=== PATIENT | female | born 1985 | race Caucasian/White ===

== ENCOUNTER 2018-09-19 13:17 | Emergency (ER) | END 2018-09-19 15:59 | disposition home or self-care (01) ==

== ENCOUNTER 2019-01-16 12:46 | Outpatient (CLI) | payer OTHER ==
[~2019-01-16] VITALS: Ht 162.6 cm; Wt 68.2 kg
[~2019-01-16 12:46] MED LIST: ACET500C5 PO; CEPH-443 PO; PREN-17 PO
[2019-01-16 13:04] VITALS: Ht 162.6 cm; Wt 68.2 kg
[2019-01-16] MEDS ORDERED: PREN-93 PO (13:14)
--- NOTE | 2019-01-16 14:38 | PN ---
Triage Information Date/Time 01/16/2019 Reason for visit: Uterine contractions Weeks of Gestation 24 weeks /Para Diabetes: none Hypertention: none Additional information 33 years old with IUP at [address] Efrain Sánchez presented to Triage with complaint of sore throat and headache. Any leaking of fluid vaginal bleeding or contractions or decreased movement. Denies any fever or chills. Objective Heart Rate: 130's Contractions: None Exam General appearance: Alert and oriented x4 does not appear to be in any acute distress Abdomen: Soft, gravid, fundal height consider gestational age NST: Appropriate for gestational age HEENT: Erythema of the pharynx noted with no exudate Lungs: Clear to auscultation bilaterally CV: RRR Disposition: Discharge Assessment/Plan IUP at 24 weeks Sore throat, body ache, headache and cough Symptoms consistent with URI No obstetrical problems at this time Patient will be referred to emergency room for further evaluation for sore throat and treatment Strict labor precautions kick count follow-up within 2 days after discharge from the hospital with primary OB office discussed with the patient After sending the patient to ED, noted that the urine shows evidence of UTI. Called ED and Discussed with ED attending who will assess the patient after Discharged from Triage to ED, Talked to Sena Villanueva, regarding UTI who agreed to dispense treatment for UTI if DCd from ED. Patient verbalized understanding. All questions answered. AZIZA PAREDES MD Jan 16, 2019 14:38
[2019-01-16] MEDS ORDERED: ACET325T33 PO (15:00)
[2019-01-16] MEDS ORDERED: NITR-58 PO (15:00)
--- NOTE | 2019-01-16 18:48 | TRIAGE ---
OB Triage Datetime Report Generated by CPN: 01/16/2019 18:48 Datetime: 01/16/2019 12:53 Time of Arrival: 01/16/2019 12:53 EGA: 24.0 Arrived By: Ambulatory Arrived From: Home Chief Complaint: PT CAME IN FROM HOME COMPLAINIG OF FLU LIKE S/S Movement: Present Contractions: Denies/Absent Rupture of Membranes: Denies Vaginal Discharge: Denies Recent Sexual Intercouse: Denies Abdominal Trauma: Not Applicable Additional Patient Complaints: NONE Time Provider Notified: 01/16/2019 12:54 Provider Notified: CHERRI Initial Plan: MATT
== END 2019-01-16 13:45 | disposition home or self-care (01) ==
LOC: L-D 12:46 → OBT 12:46
PROVIDERS: ATTEND Obstetrics & Gynecology
DX: O62.9 Abnormality of forces of labor, unspecified (principal); O99.512 Diseases of the respiratory system complicating pregnancy, second trimester; J06.9 Acute upper respiratory infection, unspecified; J02.9 Acute pharyngitis, unspecified; O09.522 Supervision of elderly multigravida, second trimester; Z3A.24 24 weeks gestation of pregnancy
CPT/HCPCS: 81001; Z7500; G0463

== ENCOUNTER 2019-01-16 14:00 | Emergency (ER) | payer OTHER ==
[~2019-01-16] VITALS: Ht 160 cm; Wt 78.5 kg
[~2019-01-16 14:00] MED LIST changes: +PREN-93 PO
[2019-01-16 14:03] VITALS: BP 118/75; PULSE 96; RESP 17; Ht 160 cm; Wt 78.5 kg
[2019-01-16] MEDS ORDERED: ACET325T33 PO (15:00)
[2019-01-16] MEDS ORDERED: NITR-58 PO (15:00)
--- NOTE | 2019-01-16 18:58 | ERD ---
ER Documentation Chief Complaint Chief Complaint HEADACHE, SORE THROAT , BODY ACHES, COUGH HPI Patient is a 33-year-old female with diabetes who presents for sore throat. The patient was cleared by OB as she is 24 weeks . She has had sore throat, headache, and chills over the past 8 days. She has had no treatment as of yet. I spoke with Dr. Gallardo from OB who said that a urine sample showed cystitis and she requested Macrobid for 10 days. ROS All systems reviewed and are negative except as per history of present illness. Medications Home Meds Active Scripts Acetaminophen* (Tylenol*) 325 Mg Tablet, 2 TAB PO Q8 PRN for PAIN AND OR ELEVATED TEMP, #20 TAB Prov:HAIR JOLLEY MD 01/16/19 Nitrofurantoin Monohyd Macrocr* (Macrobid*) 100 Mg Capsr, 100 MG PO BID for 10 Days, CAP Prov:HAIR JOLLEY MD 01/16/19 Reported Medications Vit No.124/Iron/FA ( Vitamin Tablet) 1 Each Tablet, 1 EACH PO, TAB 01/16/19 Allergies Allergies: Coded Allergies: No Known Allergy (Unverified , 09/19/18) PMhx/Soc Medical and Surgical Hx: pt denies Medical Hx Hx Alcohol Use: No Hx Substance Use: No Hx Tobacco Use: No FmHx Family History: diabetes Physical Exam Vitals Vital Signs Date Temp Pulse Resp B/P (MAP) Pulse Ox O2 O2 Flow FiO2 Time Delivery Rate 01/16/19 97.7 96 17 118/75 100 14:03 (89) Physical Exam Const: No acute distress Head: Atraumatic Eyes: Normal Conjunctiva ENT: Normal External Ears, Nose and Mouth. Neck: Full range of motion. No meningismus. Resp: Clear to auscultation bilaterally Cardio: Regular rate and rhythm, no murmurs Abd: Soft, 24-week abdomen Skin: No petechiae or rashes Back: No midline or flank tenderness Ext: No cyanosis, or edema Neur: Awake and alert Psych: Normal Mood and Affect Procedures/MDM Patient is a 33-year-old female who presents what appears to be an acute upper respiratory infection. I see no signs of bacterial infection in the throat. I doubt epiglottitis, retropharyngeal abscess, or peritonsillar abscess. The patient has cystitis and will be given 10 days of Macrobid.` Departure Diagnosis: Primary Impression: Cystitis Additional Impression: Upper respiratory infection URI type: unspecified URI Qualified Codes: J06.9 - Acute upper respiratory infection, unspecified Condition: Fair Patient Instructions: Preventing Common Respiratory Infections, Cystitis Referrals: [facility] Additional Instructions: Specialist:Usted tiene surinder condicin mdica que requiere que abdiel a un especialista dentro de los prximos 1-2 bright.POR FAVOR,CON LOPEZ SEGUIMIENTO DE PRIMARIA PHSICIAN refferal. SI USTED NO TIENE UN MDICO GENERAL Y / O USTED NO PUEDE PAGAR edgar a un mdico,los siguientes ordonez RECURSOS sido suministrado a usted. ES LOPEZ RESPONSABILIDAD PARA SER VISTOS POR EL ESPECIALISTA: HAIR JOLLEY MD Jan 16, 2019 18:58
== END 2019-01-16 16:49 | disposition home or self-care (01) ==
LOC: E/R 14:00
DX: J06.9 Acute upper respiratory infection, unspecified (principal); N30.90 Cystitis, unspecified without hematuria; E11.9 Type 2 diabetes mellitus without complications
CPT/HCPCS: 99283

== ENCOUNTER 2019-03-06 17:41 | Outpatient (CLI) | payer OTHER ==
[~2019-03-06] VITALS: Ht 165.1 cm; Wt 80.5 kg
[~2019-03-06 17:41] MED LIST changes: +ACET325T33 PO; -ACET500C5 PO; -CEPH-443 PO; +NITR-58 PO; -PREN-17 PO
[2019-03-06 18:26] VITALS: Ht 165.1 cm; Wt 80.5 kg
[2019-03-06 18:27] VITALS: BP 104/69; PULSE 93; RESP 19
--- NOTE | 2019-03-06 20:50 | TRIAGE ---
OB Triage Datetime Report Generated by CPN: 03/06/2019 20:49 Datetime: 03/06/2019 20:27 Labor Evaluation Frequency: 0 Monitor Mode: External Pattern: Normal: <= 5 Contractions in 10 Minutes Resting Tone [place]: Relaxed Heart Rate FHR Baseline Rate: 135 Monitor Mode: External US FHR Baseline Changes: No Baseline Change Variability: Moderate 6-25 bpm Accelerations: 15X15 Decelerations: None Category: Category I Datetime: 03/06/2019 18:47 Labor Evaluation Frequency: 0 Monitor Mode: External Pattern: Normal: <= 5 Contractions in 10 Minutes Resting Tone [place]: Relaxed Heart Rate FHR Baseline Rate: 150 Monitor Mode: External US Variability: Moderate 6-25 bpm Accelerations: 15X15 Decelerations: None Category: Category I Datetime: 03/06/2019 18:20 Assessment Type: Triage Maternal Assessment Level of Consciousness: Fully Conscious DTR's/Clonus: DTRs 2+; No Clonus Headache: Denies Blurred Vision: No Respiratory Effort: Unlabored; Regular Rhythm; Equal Expansion Breath Sounds, Left: Clear and Equal Breath Sounds, Right: Clear and Equal Nausea/Vomiting: Denies RUQ Epigastric Pain: Denies Lower Extremities Edema: None Degree: None Upper Extremities Edema: None Degree: None Facial Edema: None Fall Risk Assessment History of Falling: (0) No Secondary Diagnosis: (0) No Ambulatory Aid: (0) Bedrest/Nurse Assist IV Therapy: (0) No Gait: (0) Normal/Bedrest/Immobile Mental Status: (0) Oriented to Own Ability Fall Score: 0 Fall Risk Score Definition: No Risk: No action required Datetime: 03/06/2019 18:18 Time of Arrival: 03/06/2019 17:30 EGA: 31.4 Arrived By: Ambulatory Arrived From: Home Chief Complaint: UC'S SINCE LAST NIGHT Movement: Present Contractions: Irregular Rupture of Membranes: Denies Vaginal Bleeding: None Vaginal Discharge: Denies Recent Sexual Intercouse: Denies Abdominal Trauma: Not Applicable Patient Complaints: Other Time Provider Notified: 03/06/2019 18:29 Provider Notified: DR HARLEY Initial Plan: NST CL CBC UA BPP Datetime: 01/16/2019 12:53 EGA: 24.4
--- NOTE | 2019-03-22 12:56 | PN ---
Triage Information Date/Time Reason for visit: Abd/pelvic pain Weeks of Gestation 31 weeks /Para G P Diabetes: gestational Hypertention: none Objective Heart Rate: 120's Heart Rate Comments Reactive Results/Medications Imaging Results Cervical length normal Disposition: Discharge Assessment/Plan no sign of labor SJUIT HARLEY MD Mar 22, 2019 12:56
== END 2019-03-06 20:26 | disposition home or self-care (01) ==
LOC: L-D 17:41 → OBT 17:41
PROVIDERS: ATTEND Obstetrics & Gynecology
DX: O24.419 Gestational diabetes mellitus in pregnancy, unspecified control (principal); O26.893 Other specified pregnancy related conditions, third trimester; R10.2 Pelvic and perineal pain; O09.513 Supervision of elderly primigravida, third trimester; Z3A.31 31 weeks gestation of pregnancy
CPT/HCPCS: 76817; 76818; 81001; 85025; Z7500; G0463

== ENCOUNTER 2019-04-22 16:49 | Outpatient (CLI) | payer OTHER ==
[~2019-04-22] VITALS: Ht 160 cm; Wt 85.4 kg
[~2019-04-22 16:49] MED LIST changes: -ACET325T33 PO; +NPH,100I5 SQ
[2019-04-22 17:53] VITALS: BP 108/72; Ht 160 cm; Wt 85.4 kg
[2019-04-22] MEDS ORDERED: LACTATED RINGER'S 1,000 ML IV ONE (18:30)
--- NOTE | 2019-04-29 22:50 | PN ---
Triage Information Date/Time April 22, 2019 Reason for visit: DFM Weeks of Gestation 38 weeks /Para Diabetes: pre-gestational Diabetes management: insulin controlled Hypertention: none Objective Heart Rate: 120's Heart Rate Comments Reactive Results/Medications Imaging Results BP 05/08 Disposition: Discharge Assessment/Plan Follow up in NST clinic 04/24/2019. SUJIT HARLEY MD Apr 29, 2019 22:50
== END 2019-04-22 20:39 | disposition home or self-care (01) ==
LOC: OBT 16:49 → L-D 16:51 → OBT 20:39
PROVIDERS: ATTEND Obstetrics & Gynecology
DX: O36.8130 Decreased fetal movements, third trimester, not applicable or unspecified (principal); O24.414 Gestational diabetes mellitus in pregnancy, insulin controlled; Z3A.38 38 weeks gestation of pregnancy
CPT/HCPCS: 76818; 81001; 96360; 96361; J7120; Z7500; G0463

== ENCOUNTER 2019-04-26 10:00 | Inpatient (IN) | payer OTHER ==
[~2019-04-26] VITALS: Ht 160 cm; Wt 83.8 kg
[2019-04-27] MEDS ORDERED: LACTATED RINGER'S 1,000 ML IV SCH ×2 (10:09→17:27)
[2019-04-27] MEDS ORDERED: OXYTOCIN 30 UNITS/LR 500 ML IV PRN ×2 (10:30→17:30)
[2019-04-27] MEDS ORDERED: CARBOPROST 250 MCG INJ IM PRN ×2 (10:30→17:30)
[2019-04-27] MEDS ORDERED: OXYTOCIN 30 UNITS/LR 500 ML IV SCH ×2 (10:30→17:27)
[2019-04-27] MEDS ORDERED: METHYLERGONOVINE 0.2 MG INJ IM PRN ×2 (10:30→17:30)
[2019-04-27] MEDS ORDERED: MISOPROSTOL 200 MCG TAB PR PRN ×2 (10:30→17:30)
[2019-04-27] MEDS ORDERED: CEFAZOLIN 2 GM/50 ML (PMX) 50 ML IVPB SCH (10:30)
[2019-04-27 10:41] VITALS: Ht 160 cm; Wt 83.8 kg
[2019-04-27 10:42] VITALS: BP 116/76; PULSE 97; RESP 18
--- NOTE | 2019-04-27 13:09 | HP ---
Date/Time of Note Date/Time of Note DATE: 04/27/19 TIME: 13:07 OB - History Hx of Present Chief Complaint: scheduld Estimated Due Date: May 04, 2019 : 2 Para: 1 Spontaneous : 0 Therapeutic : 0 Care: Good Care Ultrasounds: Normal mid trimester US Obstetrical Complications: Other (Type II DM) Medical Complications: None (Type II DM) Past Family/Social History * Past Medical, Surgical, Family and Obstetric Histories reviewed from chart. GBS Status: Negative OB Admission Exam Vital Signs Vital Signs Vital Signs Date Temp Pulse Resp B/P (MAP) Pulse Ox O2 O2 Flow FiO2 Time Delivery Rate 04/27/19 97.9 97 18 116/76 10:42 (89) Physical Exam HEENT: WNL Heart: Rhythm Normal Lungs: Clear, Equal Abdomen: WNL Extremities: Normal Reflexes: Normal Cervical Dilatation: None Heart Rate: 120's Accelerations: Accelerations Present Decelerations: No Decelerations Varibility: Moderate Last 72 hours Lab Results CBC & BMP 04/27/19 10:35 OB Assessment/Plan Reason for admission: section Other Assessment: Voluntary sterilization Plan: Section, Other Other plan: Bilateral tubal ligation SUJIT HARLEY MD Apr 27, 2019 13:09
[2019-04-27] MEDS ORDERED: ONDANSETRON 4 MG INJ ONE (13:15)
[2019-04-27] MEDS ORDERED: KETOROLAC 30 MG INJ ONE (13:15)
[2019-04-27] MEDS ORDERED: morphine SULFATE/PF (10 MG/10 ML) INJ ONE (13:15)
[2019-04-27] MEDS ORDERED: METOCLOPRAMIDE 10 MG INJ ONE (13:15)
[2019-04-27] MEDS ORDERED: EPHEDrine 25 MG/5 ML SYG ONE (13:30)
--- NOTE | 2019-04-27 13:47 | PREAC ---
Date/Time of Note Date/Time of Note DATE: 04/27/19 TIME: 13:46 Anesthesia Eval and Record Evaluation Time Pre-Procedure Interview DATE: 04/27/19 TIME: 12:21 Age 33 Sex female NPO: 8 hrs Preoperative diagnosis repeat c section sterlization Planned procedure c section BTL Past Medical History Past Medical History: Includes Endo: Diabetes Surgery & Anesthesia Issues No known issue Meds Anticoagulation: No Beta Derek within 24 hr: No Reason Beta Derek not given: Pt. not on B-Derek Active Scripts Nitrofurantoin Monohyd Macrocr* (Macrobid*) 100 Mg Capsr, 100 MG PO BID for 10 Days, CAP Prov:HAIR JOLLEY MD 01/16/19 Reported Medications NPH, Human Insulin Isophane (Humulin N Kwikpen) 100 Unit/1 Ml Insuln.pen, 1 UNIT SQ, EA 04/22/19 Vit No.124/Iron/FA ( Vitamin Tablet) 1 Each Tablet, 1 EACH PO, TAB 01/16/19 Current Medications Lactated Ringer's 1,000 ml @ 125 mls/hr Q8H IV Last administered on 04/27/19at 10:23; Admin Dose 125 MLS/HR; Start 04/27/19 at 10:09 Cefazolin Sodium/ Dextrose 50 ml @ 100 mls/hr ONCE IVPB ; Start 04/27/19 at 1 0:30 Oxytocin/Lactated Ringer's 500 ml @ 125 mls/hr POST IV ; Start 04/27/19 at 10:30 Oxytocin/Lactated Ringer's 500 ml @ 0 mls/hr ONCE PRN IV .VAGINAL BLEEDING; Start 04/27/19 at 10:30 Methylergonovine Maleate (Methergine) 0.2 mg ONCE PRN IM .VAGINAL BLEEDING; Start 04/27/19 at 10:30 Carboprost Tromethamine (Hemabate) 250 mcg ONCE PRN IM .VAGINAL BLEEDING; Start 04/27/19 at 10:30 Misoprostol (Cytotec) 1,000 mcg ONCE PRN DE .VAGINAL BLEEDING; Start 04/27/19 at 10:30 Meds reviewed: Yes Allergies Coded Allergies: No Known Drug Allergies (Verified Allergy, Unknown, 04/22/19) Allergies Reviewed: Yes Labs/Studies Labs Reviewed: Reviewed by anesthesiologist Result Diagram: 04/27/19 1035 04/27/19 1035 Laboratory Tests 04/27/19 10:35 Blood Bank Test 04/27/19 10:35 Antibody Screen NEGATIVE Blood Type A POSITIVE Rh Immune Globulin Candidate NO test: Positive Studies: ECG (n/a), CXR (n/a) Pre-procedure Exam Last vitals Vital Signs Date Temp Pulse Resp B/P (MAP) Pulse Ox O2 O2 Flow FiO2 Time Delivery Rate 04/27/19 97.9 97 18 116/76 10:42 (89) Airway: Adequate mouth opening Mallampati: Mallampati I Teeth: Normal Lung: Normal Heart: Normal ASA Physical Status ASA physical status: 2 Emergency: None Planned Anesthetic Neuraxial: Spinal Planned Pain Management Single shot nerve block Pre-operative Attestations Prior to commencing anesthesia and surgery, the patient was re-evaluated, there was verification of: *The patient's identity *The results of appropriate recent lab work and preoperative vital signs *The above evaluation not changing prior to induction *Anesthetic plan, risk benefits, alternative and complications discussed with patient/family; questions answered; patient/family understands, accepts and wishes to proceed. MARI CARLISLE MD Apr 27, 2019 13:47
--- NOTE | 2019-04-27 14:35 | OPPN ---
Date/Time of Note Date/Time of Note DATE: 04/27/19 TIME: 14:31 Operative Report Planned Procedure Procedure date Apr 27, 2019 Procedure(s) Repeat c/s and BTL Performed by Sujit Harley MD Curing Supervisor: LIZBETH WATSON M.D. 2nd Curing Supervisor none Anesthesiologist: MARI CARLISLE MD Pre-procedure diagnosis Term , previous c/s and voluntary sterilization [id number] Anesthesia Type: [id number] spinal Post-Procedure Post-procedure diagnosis Same Findings Live Baby, Apgars 9 and 9 Estimated Blood Loss: other (600 ml) Specimen(s) Placenta and Fallopian tubes Grafts/Implant(s) none Complication(s) none SUJIT HARLEY MD Apr 27, 2019 14:35
[2019-04-27] MEDS ORDERED: NALOXONE (0.4 MG/ML) INJ IV PRN (15:00)
[2019-04-27] MEDS ORDERED: DIPHENHYDRAMINE 50 MG INJ IV PRN ×2 (15:00)
[2019-04-27] MEDS ORDERED: MEPERIDINE 25 MG INJ IV PRN (15:00)
[2019-04-27] MEDS ORDERED: ONDANSETRON 4 MG INJ IV PRN ×2 (15:00)
[2019-04-27] MEDS ORDERED: KETOROLAC 30 MG INJ IV PRN (15:00)
[2019-04-27] MEDS ORDERED: morphine 2 MG INJ IV PRN ×6 (15:00)
--- NOTE | 2019-04-27 15:18 | CONS ---
Assessment/Plan Assessment/Plan Problems: (1) Diabetes mellitus type 2 in nonobese Onset Date: ~ 01/2018 Status: Chronic Comment: Resume metformin. Is quite likely in the state her needs for insulin will disappear completely. We will follow her by fingersticks and continue along. Please note the patient is not planning to breast-feed (2) Status post Onset Date: ~ 04/27/2019 Status: Acute Comment: Stable postop (3) Migraine syndrome Status: Chronic Comment: Noted. She does not meet criteria for prophylactic therapy (4) 2 para 2 Status: Chronic Comment: Noted. (5) History of bilateral tubal ligation Onset Date: ~ 04/27/2019 Status: Acute Comment: Noted. (6) Closed left radial fracture Onset Date: ~ 03/2015 Status: Chronic Comment: Noted. Qualifiers: Qualified Codes: S52.502D - Unspecified fracture of the lower end of left radius, subsequent encounter for closed fracture with routine healing (7) History of open reduction and internal fixation (ORIF) procedure Onset Date: ~ 03/2015 Status: Chronic Comment: Noted. (8) History of bilateral breast reduction surgery Onset Date: ~ 03/2010 Comment: Noted. (9) History of cholecystectomy Onset Date: ~ 03/2015 Status: Chronic Comment: Noted. (10) History of Onset Date: ~ 03/2004 Status: Chronic Comment: Noted. (11) Family history of hypertension Comment: Noted. (12) Family history of diabetes mellitus (DM) Comment: Noted. CC: SUJIT HARLEY MD ; Consultation Date/Type/Reason Admit Date/Time Apr 27, 2019 at 09:57 Date of Consultation: Apr 27, 2019 Type of Consult Endocrinology-internal medicine Reason for Consultation Diabetes mellitus type 2 predating now immediately post ; G2, P2 Ab0; overweight; migraine syndrome Requesting Provider: SUJIT HARLEY MD Date/Time of Note DATE: 04/27/19 TIME: 15:12 Hx of Present Illness Charming 33-year-old [place] woman with history of having been diagnosed in January 2018 with elevated sugars. She was initially treated with DPP 4 inhibitor and metformin and glipizide. This was able to be tapered down to metformin alone until she became . At that time NPH insulin was used. She is now immediately and her A1c's demonstrates that she has had good glycemic control through the . Constitutional: no complaints Eyes: no complaints ENT: no complaints Respiratory: no complaints Cardiovascular: no complaints Gastrointestinal: no complaints Genitourinary: no complaints Musculoskeletal: no complaints Skin: no complaints Neurologic: headache (Migraine headaches; 3 days out of the month) Past Medical History Medical History: diabetes (Diabetes mellitus type 2), other (Migraine syndrome; G2, P2 Ab0) Home Meds Active Scripts Nitrofurantoin Monohyd Macrocr* (Macrobid*) 100 Mg Capsr, 100 MG PO BID for 10 Days, CAP Prov:HAIR JOLLEY MD 01/16/19 Reported Medications NPH, Human Insulin Isophane (Humulin N Kwikpen) 100 Unit/1 Ml Insuln.pen, 1 UNIT SQ, EA 04/22/19 Vit No.124/Iron/FA ( Vitamin Tablet) 1 Each Tablet, 1 EACH PO, TAB 01/16/19 Medications Current Medications Lactated Ringer's 1,000 ml @ 125 mls/hr Q8H IV Last administered on 04/27/19at 10:23; Admin Dose 125 MLS/HR; Start 04/27/19 at 10:09 Cefazolin Sodium/ Dextrose 50 ml @ 100 mls/hr ONCE IVPB ; Start 04/27/19 at 10:30 Oxytocin/Lactated Ringer's 500 ml @ 125 mls/hr POST IV ; Start 04/27/19 at 10:30 Oxytocin/Lactated Ringer's 500 ml @ 0 mls/hr ONCE PRN IV .VAGINAL BLEEDING; Start 04/27/19 at 10:30 Methylergonovine Maleate (Methergine) 0.2 mg ONCE PRN IM .VAGINAL BLEEDING; Start 04/27/19 at 10:30 Carboprost Tromethamine (Hemabate) 250 mcg ONCE PRN IM .VAGINAL BLEEDING; Start 04/27/19 at 10:30 Misoprostol (Cytotec) 1,000 mcg ONCE PRN AR .VAGINAL BLEEDING; Start 04/27/19 at 10:30 Morphine Sulfate (morphine) 2 mg PACU PRN IV PAIN LEVEL 1-3; Start 04/27/19 at 15:00; Stop 04/27/19 at 20:00 Morphine Sulfate (morphine) 4 mg PACU PRN IV PAIN LEVEL 4-6; Start 04/27/19 at 15:00; Stop 04/27/19 at 20:00 Morphine Sulfate (morphine) 6 mg PACU PRN IV PAIN LEVEL 7-10; Start 04/27/19 at 15:00; Stop 04/27/19 at 20:00 Ketorolac Tromethamine (Toradol) 30 mg PACU ORDER PRN IV FOR PAIN AFTER IV NARCOTIC MED; Start 04/27/19 at 15:00; Stop 04/27/19 at 20:00 Ondansetron HCl (Zofran Inj) 4 mg PACU ORDER PRN IV NAUSEA/VOMITING; Start 04/27/19 at 15:00; Stop 04/27/19 at 20:00 Meperidine HCl (Demerol) 25 mg PACU ORDER PRN IV .RIGORS; Start 04/27/19 at 15:00; Stop 04/27/19 at 20:00 Diphenhydramine HCl (Benadryl) 25 mg PACU ORDER PRN IV .PRURITUS; Start 04/27/19 at 15:00; Stop 04/27/19 at 20:00 Naloxone HCl (Narcan) 0.1 mg Q2M PRN IV .RESP RATE; Start 04/27/19 at 15:00; Stop 04/28/19 at 14:59 Ketorolac Tromethamine (Toradol) 30 mg Q6H PRN IV PAIN AFTER CSECTION; Start 04/27/19 at 15:00; Stop 04/28/19 at 14:59 Morphine Sulfate (morphine) 3 mg Q3 PRN IV .BREAKTHROUGH PAIN; Start 04/27/19 at 15:00; Stop 04/28/19 at 14:59 Morphine Sulfate (morphine) 2 mg Q3H PRN IV .PAIN 1-5; Start 04/27/19 at 15:00; Stop 04/28/19 at 14:59 Morphine Sulfate (morphine) 4 mg Q3H PRN IV .PAIN 6-10; Start 04/27/19 at 15:00; Stop 04/28/19 at 14:59 Diphenhydramine HCl (Benadryl) 25 mg Q6H PRN IV .ITCHING; Start 04/27/19 at 15:00; Stop 04/28/19 at 14:59 Ondansetron HCl (Zofran Inj) 4 mg Q6H PRN IV .NAUSEA/VOMITING; Start 04/27/19 at 15:00; Stop 04/28/19 at 14:59 Allergies: Coded Allergies: No Known Drug Allergies (Verified Allergy, Unknown, 04/22/19) Past Surgical History Past Surgical Hx: cholecystectomy, other (Status post ; status post reduction mammoplasty; status post ORIF left radius fracture) Family History Significant Family History: diabetes, hypertension Social History Born [place] raised. 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 lives with her spouse and 15-year-old son who is a bout to be a high school sophomore Alcohol Use: none Smoking Status: Never smoker Drug Use: none Exam/Review of Systems Exam Vitals Vital Signs Date Temp Pulse Resp B/P (MAP) Pulse Ox O2 O2 Flow FiO2 Time Delivery Rate 04/27/19 97.9 97 18 116/76 10:42 (89) Constitutional: alert, oriented Head: normocephalic, atraumatic Neck: supple, non-tender Respiratory: clear to auscultation, normal air movement Cardiovascular: regular rate and rhythm, nl pulses Gastrointestinal: soft, nl liver, spleen, non-tender Extremities: normal pulses Results Result Diagram: 04/27/19 1035 04/27/19 1035 Results 24hrs Laboratory Tests Test 04/27/19 10:35 White Blood Count 6.8 Red Blood Count 3.65 L Hemoglobin 12.1 Hematocrit 36.1 L Mean Corpuscular Volume 98.9 Mean Corpuscular Hemoglobin 33.2 H Mean Corpuscular Hemoglobin Concent 33.5 Red Cell Distribution Width 13.2 Platelet Count 250 Mean Platelet Volume 10.1 Immature Granulocytes % 0.400 Neutrophils % 61.5 Lymphocytes % 31.0 Monocytes % 5.6 Eosinophils % 1.2 Basophils % 0.3 Nucleated Red Blood Cells % 0.0 Immature Granulocytes # 0.030 Neutrophils # 4.2 Lymphocytes # 2.1 Monocytes # 0.4 Eosinophils # 0.1 Basophils # 0.0 Nucleated Red Blood Cells # 0.0 Prothrombin Time 12.2 Prothrombin Time Ratio 1.0 INR International Normalized Ratio 0.89 Activated Partial Thromboplast Time 25.3 Glucose Level 93 Hepatitis B Surface Antigen NEGATIVE Medications Medication Current Medications Lactated Ringer's 1,000 ml @ 125 mls/hr Q8H IV Last administered on 04/27/19at 10:23; Admin Dose 125 MLS/HR; Start 04/27/19 at 10:09 Cefazolin Sodium/ Dextrose 50 ml @ 100 mls/hr ONCE IVPB ; Start 04/27/19 at 10:30 Oxytocin/Lactated Ringer's 500 ml @ 125 mls/hr POST IV ; Start 04/27/19 at 10:30 Oxytocin/Lactated Ringer's 500 ml @ 0 mls/hr ONCE PRN IV .VAGINAL BLEEDING; Start 04/27/19 at 10:30 Methylergonovine Maleate (Methergine) 0.2 mg ONCE PRN IM .VAGINAL BLEEDING; Start 04/27/19 at 10:30 Carboprost Tromethamine (Hemabate) 250 mcg ONCE PRN IM .VAGINAL BLEEDING; Start 04/27/19 at 10:30 Misoprostol (Cytotec) 1,000 mcg ONCE PRN AR .VAGINAL BLEEDING; Start 04/27/19 at 10:30 Morphine Sulfate (morphine) 2 mg PACU PRN IV PAIN LEVEL 1-3; Start 04/27/19 at 15:00; Stop 04/27/19 at 20:00 Morphine Sulfate (morphine) 4 mg PACU PRN IV PAIN LEVEL 4-6; Start 04/27/19 at 15:00; Stop 04/27/19 at 20:00 Morphine Sulfate (morphine) 6 mg PACU PRN IV PAIN LEVEL 7-10; Start 04/27/19 at 15:00; Stop 04/27/19 at 20:00 Ketorolac Tromethamine (Toradol) 30 mg PACU ORDER PRN IV FOR PAIN AFTER IV NARCOTIC MED; Start 04/27/19 at 15:00; Stop 04/27/19 at 20:00 Ondansetron HCl (Zofran Inj) 4 mg PACU ORDER PRN IV NAUSEA/VOMITING; Start 04/27/19 at 15:00; Stop 04/27/19 at 20:00 Meperidine HCl (Demerol) 25 mg PACU ORDER PRN IV .RIGORS; Start 04/27/19 at 15:00; Stop 04/27/19 at 20:00 Diphenhydramine HCl (Benadryl) 25 mg PACU ORDER PRN IV .PRURITUS; Start 04/27/19 at 15:00; Stop 04/27/19 at 20:00 Naloxone HCl (Narcan) 0.1 mg Q2M PRN IV .RESP RATE; Start 04/27/19 at 15:00; Stop 04/28/19 at 14:59 Ketorolac Tromethamine (Toradol) 30 mg Q6H PRN IV PAIN AFTER CSECTION; Start 04/27/19 at 15:00; Stop 04/28/19 at 14:59 Morphine Sulfate (morphine) 3 mg Q3 PRN IV .BREAKTHROUGH PAIN; Start 04/27/19 at 15:00; Stop 04/28/19 at 14:59 Morphine Sulfate (morphine) 2 mg Q3H PRN IV .PAIN 1-5; Start 04/27/19 at 15:00; Stop 04/28/19 at 14:59 Morphine Sulfate (morphine) 4 mg Q3H PRN IV .PAIN 6-10; Start 04/27/19 at 15:00; Stop 04/28/19 at 14:59 Diphenhydramine HCl (Benadryl) 25 mg Q6H PRN IV .ITCHING; Start 04/27/19 at 15:00; Stop 04/28/19 at 14:59 Ondansetron HCl (Zofran Inj) 4 mg Q6H PRN IV .NAUSEA/VOMITING; Start 04/27/19 at 15:00; Stop 04/28/19 at 14:59 PAULETTE LEDESMA MD Apr 27, 2019 15:18
[2019-04-27] MEDS ORDERED: GLUCOSE GEL 15 GRAM TUBE BUCCAL PRN ×2 (16:00)
[2019-04-27] MEDS ORDERED: GLUCAGON 1 MG INJ IM PRN ×2 (16:00)
[2019-04-27] MEDS ORDERED: DEXTROSE 50% 50 ML SYRINGE IV PRN ×4 (16:00)
[2019-04-27] MEDS ORDERED: GLUCOSE GEL 15 GRAM TUBE PO PRN ×4 (16:00)
[2019-04-27 17:30] VITALS: BP 112/70; PULSE 68; RESP 20
[2019-04-27] MEDS ORDERED: LANOLIN HPA 1 PKT TOP PRN (17:30)
[2019-04-27] MEDS ORDERED: OXYCODONE/ACETAMINOPHEN (5/325) TAB PO PRN (17:30)
[2019-04-27] MEDS: metFORMIN 500 MG TAB PO SCH (18:05)
[2019-04-27] MEDS: INSULIN ASPART [NOVOLOG] 3 ML PEN SC SCH ×2 (18:05→21:00)
[2019-04-27] MEDS ORDERED: ACCU-CHEK XX SCH (19:35)
[2019-04-27 20:00] VITALS: BP 112/69; PULSE 64; RESP 19
[2019-04-27] MEDS: SENNA/DOCUSATE NA (8.6MG/50MG) TAB PO SCH (21:00)
--- NOTE | 2019-04-27 21:10 | OPR ---
DATE OF OPERATION: 04/27/2019 PREOPERATIVE DIAGNOSES: at 39 weeks with previous section and voluntary sterilization. POSTOPERATIVE DIAGNOSES: at 39 weeks with previous section and voluntary sterilization. OPERATION PERFORMED: Repeat low transverse section and bilateral tubal ligation. SURGEON: Sujit Harley MD SHERIFF SERGEANT: Sylvain Antunez MD ANESTHESIA: Spinal. ANESTHESIOLOGIST: Dr. Traore PROCEDURE: The patient was taken to the operating room and placed on the operating table. After successful spinal anesthesia was given, the patient was placed in supine position. The area was prepared and draped in the usual sterile fashion. Spinal anesthesia was tested and was satisfactory. Using scalpel, Pfannenstiel incision was made about 2 fingerbreadths above the symphysis pubis. The incision was carried down to the fascia. The fascia was incised and extended bilaterally with Bovie. Two Jacob's were used to separate the fascia from the muscle. The muscle was dissected down to peritoneum. The peritoneum was bluntly entered. Using a scalpel, a small transverse incision was made in the lower segment of the uterus. Upon entering the uterine cavity, bandage scissors were inserted to extend the incision bilaterally, curved up. Baby was delivered from cephalic presentation. After suctioning clear of amniotic fluid. He was handed off to the team in attendance. Apgars were 9 and 9. The placenta was delivered without difficulty. Uterus was closed in #1 Monocryl continuous locked. After assuring hemostasis, both ovaries and tubes were inspected, all looked normal. The right fallopian tube was grasped with a Juan Antonio clamp. Using 0 plain suture ligature, a 5 cm segment of the right fallopian tube was doubly ligated. Using Metzenbaum scissors, a portion of the right fallopian tube above the ligated area was excised and sent to pathology. Same procedure was repeated on left fallopian tube. After assuring hemostasis, the peritoneum was closed with 2-0 Vicryl continuous. The fascia was closed with #1 Vicryl continuous in 2 segments. Subcutaneous tissue was reapproximated with 2-0 plain. The skin was closed with etta. ESTIMATED BLOOD LOSS: 600 mL. COUNTS: All counts were correct. Dictated By: SUJIT HARLEY MD GD/NTS Conf#: [id number] DID#: [id number] [facility]ENTER[facility]
[2019-04-28] VITALS: BP 96/55; PULSE 80; RESP 18
[2019-04-28 04:00] VITALS: BP 91/50; PULSE 78; RESP 18
[2019-04-28] MEDS: KETOROLAC 30 MG INJ IV PRN ×2 (06:13→14:05)
--- NOTE | 2019-04-28 08:28 | PAC ---
Date/Time of Note Date/Time of Note DATE: 04/28/19 TIME: 08:28 Post-Anesthesia Notes Post-Anesthesia Note Last documented vital signs Vital Signs Date Temp Pulse Resp B/P (MAP) Pulse Ox O2 O2 Flow FiO2 Time Delivery Rate 04/28/19 98.3 78 18 91/50 (64) 04:00 04/28/19 Room Air 00:00 Activity: WNL Respiratory function: WNL Cardiovascular function: WNL Mental status: Baseline Pain reasonably controlled: Yes Hydration appropriate: Yes Nausea/Vomiting absent: No MARI CARLISLE MD Apr 28, 2019 08:28
[2019-04-28] MEDS: metFORMIN 500 MG TAB PO SCH ×2 (08:30→19:45)
--- NOTE | 2019-04-28 08:30 | OPPN ---
Date/Time of Note Date/Time of Note DATE: 04/28/19 TIME: 08:28 Anesthesia Follow up Anesthesia Follow up Last documented vital signs Vital Signs Date Temp Pulse Resp B/P (MAP) Pulse Ox O2 O2 Flow FiO2 Time Delivery Rate 04/28/19 98.3 78 18 91/50 (64) 04:00 04/28/19 Room Air 00:00 Respiratory function: WNL Cardiovascular function: WNL Comments A 33 year s/p spinal with suramortph fo [post op pain. POD #1 is doing fine. No apin, itching, neural deficit, headache, N/V, SOB. MARI CARLISLE MD Apr 28, 2019 08:30
[2019-04-28 09:00] VITALS: BP 91/53; PULSE 77; RESP 18
--- NOTE | 2019-04-28 10:24 | NSTRPT ---
NST Information Datetime Report Generated by CPN: 04/28/2019 10:24 Datetime: 04/24/2019 08:13 NST Information EGA: 38.4 Test Number: 14 Time on Monitor: 04/24/2019 08:37 Time off Monitor: 04/24/2019 09:07 NST Duration (Min): 30 Reason for NST: Diabetes Mellitus; Other Reason for NST Other: A2DM Test and Monitor Explained: Monitor Explained; Test Explained; Verbalized Understanding Pulse: 97 Resp: 18 SBP: 104 DBP: 70 Test Evaluation NST Interventions: None Patient States Movement: Present Contraction Frequency: NONE FHR Baseline : 140 Variability: Moderate 6-25bpm Accelerations: 15X15 Decelerations: None FHR Category: Category I NST Results: Reactive Comments: To u/s. SALUD 15.1cm. CEPHALIC. FBS:94 Electronically Signed By E-Signature: with User ID: [id number] Datetime: 04/21/2019 08:12 NST Information EGA: 38.1 NST Duration (Min): 32 Datetime: 04/17/2019 08:10 NST Information EGA: 37.4 NST Duration (Min): 26 Datetime: 04/14/2019 08:15 NST Information EGA: 37.1 NST Duration (Min): 60 Datetime: 04/10/2019 09:18 NST Information EGA: 36.4 NST Duration (Min): 54 Datetime: 04/07/2019 09:13 NST Information EGA: 36.1 NST Duration (Min): 21 Datetime: 04/02/2019 10:38 NST Information EGA: 35.3 NST Duration (Min): 46 Datetime: 03/31/2019 13:52 NST Information EGA: 35.1 NST Duration (Min): 29 Datetime: 03/27/2019 13:26 NST Information EGA: 34.4 NST Duration (Min): 35 Datetime: 03/24/2019 13:37 NST Information EGA: 34.1 NST Duration (Min): 45 Datetime: 03/20/2019 13:22 NST Information EGA: 33.4 NST Duration (Min): 21 Datetime: 03/17/2019 13:01 NST Information EGA: 33.1 NST Duration (Min): 23 Datetime: 03/13/2019 13:08 NST Information EGA: 32.4 NST Duration (Min): 57 Datetime: 03/10/2019 14:08 NST Information EGA: 32.1 NST Duration (Min): 26
[2019-04-28] MEDS: SENNA/DOCUSATE NA (8.6MG/50MG) TAB PO SCH ×2 (11:12→22:08)
[2019-04-28 12:45] VITALS: BP 105/59; PULSE 63; RESP 18
--- NOTE | 2019-04-28 13:35 | CONS ---
Assessment/Plan Assessment/Plan Problems: (1) Diabetes mellitus type 2 in nonobese Onset Date: ~ 01/2018 Status: Chronic Comment: Single agent therapy with metformin only she is doing quite nicely. I would continue with the same protocol for the time being Consultation Date/Type/Reason Admit Date/Time Apr 27, 2019 at 09:57 Initial Consult Date 04/27/19 Type of Consult Endocrinology-internal medicine Reason for Consultation Diabetes Mellitus type II Requesting Provider: SUJIT HARLEY MD Date/Time of Note DATE: 04/28/19 TIME: 13:32 24 HR Interval Summary Free Text/Dictation No complaints Constitutional: no complaints Detailed Summary Endocrine: no complaints Exam/Review of Systems Exam Vitals Vital Signs Date Temp Pulse Resp B/P (MAP) Pulse Ox O2 O2 Flow FiO2 Time Delivery Rate 04/28/19 98.3 63 18 105/59 97 Room Air 12:45 (74) Intake and Output 04/27/19 04/27/19 04/28/19 1515:00 23:00 07:00 IntakeIntake Total 1000 ml OutputOutput Total 900 ml 348 ml 1000 ml BalanceBalance 100 ml -348 ml -1000 ml Constitutional: alert, oriented Respiratory: clear to auscultation, normal air movement Cardiovascular: regular rate and rhythm, nl pulses Gastrointestinal: soft, nl liver, spleen, non-tender Results Result Diagram: 04/28/19 0652 04/27/19 1035 Results 24hrs Laboratory Tests Test 04/27/19 18:48 04/27/19 21:03 04/28/19 06:36 04/28/19 06:52 Bedside Glucose 78 94 Lab Scanned Report REFERENCE LAB White Blood Count 9.6 # Red Blood Count 3.06 L Hemoglobin 10.0 L Hematocrit 30.6 L Mean Corpuscular 100.0 Volume Mean Corpuscular 32.7 Hemoglobin Mean Corpuscular 32.7 Hemoglobin Concent Red Cell 13.3 Distribution Width Platelet Count 201 Mean Platelet 10.0 Volume Immature 0.400 Granulocytes % Neutrophils % 69.8 Lymphocytes % 22.4 Monocytes % 6.4 Eosinophils % 0.8 Basophils % 0.2 Nucleated Red 0.0 Blood Cells % Immature 0.040 H Granulocytes # Neutrophils # 6.7 Lymphocytes # 2.1 Monocytes # 0.6 Eosinophils # 0.1 Basophils # 0.0 Nucleated Red 0.0 Blood Cells # Test 04/28/19 08:23 04/28/19 13:01 Bedside Glucose 87 102 Medications Medication Current Medications Ketorolac Tromethamine (Toradol) 30 mg Q6H PRN IV PAIN AFTER CSECTION Last administered on 04/28/19at 06:13; Admin Dose 30 MG; Start 04/27/19 at 15:00; Stop 04/28/19 at 14:59 Morphine Sulfate (morphine) 3 mg Q3 PRN IV .BREAKTHROUGH PAIN Last administered on 04/28/19at 11:14; Admin Dose 2 MG; Start 04/27/19 at 15:00; Stop 04/28/19 at 14:59 Morphine Sulfate (morphine) 2 mg Q3H PRN IV .PAIN 1-5; Start 04/27/19 at 15:00; Stop 04/28/19 at 14:59 Morphine Sulfate (morphine) 4 mg Q3H PRN IV .PAIN 6-10; Start 04/27/19 at 15:00; Stop 04/28/19 at 14:59 Diphenhydramine HCl (Benadryl) 25 mg Q6H PRN IV .ITCHING; Start 04/27/19 at 15:00; Stop 04/28/19 at 14:59 Ondansetron HCl (Zofran Inj) 4 mg Q6H PRN IV .NAUSEA/VOMITING; Start 04/27/19 at 15:00; Stop 04/28/19 at 14:59 Insulin Aspart (Novolog Insulin Pen) NOVOLOG *MILD* ALGORITHM WITH MEALS BEDTIME SC ; Start 04/27/19 at 17:35 Metformin HCl (Glucophage) 500 mg BID WITH MEALS PO Last administered on 04/28/19at 08:30; Admin Dose 500 MG; Start 04/27/19 at 17:35 Miscellaneous Information 1 ea NOTE XX ; Start 04/27/19 at 16:00 Glucose (Glutose) 15 gm Q15M PRN PO DECREASED GLUCOSE; Start 04/27/19 at 16:00 Glucose (Glutose) 22.5 gm Q15M PRN PO DECREASED GLUCOSE; Start 04/27/19 at 16:00 Dextrose (D50w Syringe) 25 ml Q15M PRN IV DECREASED GLUCOSE; Start 04/27/19 at 16:00 Dextrose (D50w Syringe) 50 ml Q15M PRN IV DECREASED GLUCOSE; Start 04/27/19 at 16:00 Glucagon (Glucagen) 1 mg Q15M PRN IM DECREASED GLUCOSE; Start 04/27/19 at 16:00 Glucose (Glutose) 15 gm Q15M PRN BUCCAL DECREASED GLUCOSE; Start 04/27/19 at 16:00 Oxycodone/ Acetaminophen (Percocet (5/ 325)) 1 tab Q4H PRN PO .PAIN 4-6; Start 04/27/19 at 17:30 Oxycodone/ Acetaminophen (Percocet (5/ 325)) 2 tab Q4H PRN PO .PAIN 7-10; Start 04/27/19 at 17:30 Ibuprofen (Motrin) 800 mg Q8 PO ; Start 04/28/19 at 14:00 Simethicone (Mylicon) 160 mg Q8H PRN PO .GAS; Start 04/27/19 at 17:30 Senna/Docusate Sodium (Senokot-S) 1 tab BID PO Last administered on 04/28/19at 11:12; Admin Dose 1 TAB; Start 04/27/19 at 21:00 Lanolin (Lanolin Hpa) 1 applic BEDSIDE MEDICATION PRN TOP .NIPPLES; Start 04/27/19 at 17:30 Diphtheria/ Tetanus/Acell Pertussis (Adacel) 0.5 ml ONCE ONCE IM* ; Start 04/30/19 at 09:00; Stop 04/30/19 at 09:01 Oxytocin/Lactated Ringer's 500 ml @ 0 mls/hr ONCE PRN IV .VAGINAL BLEEDING; Start 04/27/19 at 17:30 Methylergonovine Maleate (Methergine) 0.2 mg ONCE PRN IM .VAGINAL BLEEDING; Start 04/27/19 at 17:30 Carboprost Tromethamine (Hemabate) 250 mcg ONCE PRN IM .VAGINAL BLEEDING; Start 04/27/19 at 17:30 Misoprostol (Cytotec) 1,000 mcg ONCE PRN AR .VAGINAL BLEEDING; Start 04/27/19 at 17:30 PAULETTE LEDESMA MD Apr 28, 2019 13:35
[2019-04-28] MEDS: IBUPROFEN 800 MG TAB PO SCH ×2 (14:00→22:09)
[2019-04-28 15:50] VITALS: BP 98/53; PULSE 80; RESP 18
[2019-04-28] MEDS: OXYCODONE/ACETAMINOPHEN (5/325) TAB PO PRN (16:46)
--- NOTE | 2019-04-28 19:29 | QN ---
Documentation Comment No complaint Afebrile VSS Abdomen soft ND POD #1 Stable Advance diet Ambulate Management of DM per SUJIT Amaral MD Apr 28, 2019 19:29
[2019-04-28 20:00] VITALS: BP 106/71; PULSE 69; RESP 20
[2019-04-29 04:00] VITALS: BP 100/63; PULSE 79; RESP 18
[2019-04-29] MEDS: IBUPROFEN 800 MG TAB PO SCH ×3 (06:31→22:16)
[2019-04-29 08:00] VITALS: BP 105/69; PULSE 66; RESP 18
[2019-04-29] MEDS: SENNA/DOCUSATE NA (8.6MG/50MG) TAB PO SCH ×2 (08:25→22:16)
[2019-04-29] MEDS: metFORMIN 500 MG TAB PO SCH ×2 (08:25→18:00)
[2019-04-29] MEDS: OXYCODONE/ACETAMINOPHEN (5/325) TAB PO PRN (08:26)
--- NOTE | 2019-04-29 13:20 | CONS ---
Assessment/Plan Assessment/Plan Problems: (1) Diabetes mellitus type 2 in nonobese Onset Date: ~ 01/2018 Status: Chronic Comment: Adequate control on her present dosing of metformin. As she goes through a slow gradual weight loss protocol with the combination with the metformin her metabolism should do quite nicely. She does need to be followed up in 2 months to check her sugars (2) Migraine syndrome Status: Chronic Comment: Adequately controlled Consultation Date/Type/Reason Admit Date/Time Apr 27, 2019 at 09:57 Initial Consult Date 04/27/19 Type of Consult Endocrinology-internal medicine Reason for Consultation Patient is ambulating and going to the bathroom without complications. She had a special cappuccino yesterday and then after that had her blood sugar tested which is when her Accu-Chek was in the 180s. The rest of her blood tests have been in acceptable range. Requesting Provider: SUJIT HARLEY MD Date/Time of Note DATE: 04/29/19 TIME: 13:19 24 HR Interval Summary Constitutional: no complaints Detailed Summary Respiratory: no complaints Cardiovascular: no complaints Endocrine: no complaints Exam/Review of Systems Exam Vitals Vital Signs Date Temp Pulse Resp B/P (MAP) Pulse Ox O2 O2 Flow FiO2 Time Delivery Rate 04/29/19 98.1 66 18 105/69 99 Room Air 08:00 (81) Intake and Output 04/28/19 04/28/19 04/29/19 1515:00 23:00 07:00 IntakeIntake Total 825 ml 1500 ml OutputOutput Total 1500 ml 400 ml BalanceBalance -675 ml 1100 ml Constitutional: alert, oriented Neck: supple, non-tender Respiratory: clear to auscultation, normal air movement Results Result Diagram: 04/28/19 0652 04/27/19 1035 Results 24hrs Laboratory Tests Test 04/28/19 19:33 04/29/19 03:24 04/29/19 08:29 Bedside Glucose 183 114 110 Medications Medication Current Medications Insulin Aspart (Novolog Insulin Pen) NOVOLOG *MILD* ALGORITHM WITH MEALS BE DTIME SC ; Start 04/27/19 at 17:35 Metformin HCl (Glucophage) 500 mg BID WITH MEALS PO Last administered on 04/29/19at 08:25; Admin Dose 500 MG; Start 04/27/19 at 17:35 Miscellaneous Information 1 ea NOTE XX ; Start 04/27/19 at 16:00 Glucose (Glutose) 15 gm Q15M PRN PO DECREASED GLUCOSE; Start 04/27/19 at 16:00 Glucose (Glutose) 22.5 gm Q15M PRN PO DECREASED GLUCOSE; Start 04/27/19 at 16:00 Dextrose (D50w Syringe) 25 ml Q15M PRN IV DECREASED GLUCOSE; Start 04/27/19 at 16:00 Dextrose (D50w Syringe) 50 ml Q15M PRN IV DECREASED GLUCOSE; Start 04/27/19 at 16:00 Glucagon (Glucagen) 1 mg Q15M PRN IM DECREASED GLUCOSE; Start 04/27/19 at 16:00 Glucose (Glutose) 15 gm Q15M PRN BUCCAL DECREASED GLUCOSE; Start 04/27/19 at 16:00 Oxycodone/ Acetaminophen (Percocet (5/ 325)) 1 tab Q4H PRN PO .PAIN 4-6; Start 04/27/19 at 17:30 Oxycodone/ Acetaminophen (Percocet (5/ 325)) 2 tab Q4H PRN PO .PAIN 7-10 Last administered on 04/29/19at 08:26; Admin Dose 2 TAB; Start 04/27/19 at 17:30 Ibuprofen (Motrin) 800 mg Q8 PO Last administered on 04/29/19at 06:31; Admin Dose 800 MG; Start 04/28/19 at 14:00 Simethicone (Mylicon) 160 mg Q8H PRN PO .GAS; Start 04/27/19 at 17:30 Senna/Docusate Sodium (Senokot-S) 1 tab BID PO Last administered on 04/29/19at 08:25; Admin Dose 1 TAB; Start 04/27/19 at 21:00 Lanolin (Lanolin Hpa) 1 applic BEDSIDE MEDICATION PRN TOP .NIPPLES; Start 04/27/19 at 17:30 Diphtheria/ Tetanus/Acell Pertussis (Adacel) 0.5 ml ONCE ONCE IM* ; Start 04/30/19 at 09:00; Stop 04/30/19 at 09:01 Oxytocin/Lactated Ringer's 500 ml @ 0 mls/hr ONCE PRN IV .VAGINAL BLEEDING; Start 04/27/19 at 17:30 Methylergonovine Maleate (Methergine) 0.2 mg ONCE PRN IM .VAGINAL BLEEDING; Start 04/27/19 at 17:30 Carboprost Tromethamine (Hemabate) 250 mcg ONCE PRN IM .VAGINAL BLEEDING; Start 04/27/19 at 17:30 Misoprostol (Cytotec) 1,000 mcg ONCE PRN ND .VAGINAL BLEEDING; Start 04/27/19 at 17:30 PAULETTE LEDESMA MD Apr 29, 2019 13:20
[2019-04-29 18:22] VITALS: BP 96/55; PULSE 76; RESP 18
--- NOTE | 2019-04-29 19:26 | QN ---
Documentation Comment No complaint Afebrile VSS Abdomen soft ND Incision intact POD #2 Stable Continue present care. SUJIT HARLEY MD Apr 29, 2019 19:25
[2019-04-29 20:20] VITALS: BP 109/65; PULSE 74; RESP 19
[2019-04-29] MEDS: INSULIN ASPART [NOVOLOG] 3 ML PEN SC SCH (21:00)
[2019-04-30] MEDS: OXYCODONE/ACETAMINOPHEN (5/325) TAB PO PRN (03:13)
[2019-04-30 04:15] VITALS: BP 110/66; PULSE 66; RESP 20
[2019-04-30] MEDS: IBUPROFEN 800 MG TAB PO SCH ×2 (05:41→13:17)
[2019-04-30] MEDS: INSULIN ASPART [NOVOLOG] 3 ML PEN SC SCH ×2 (08:05→11:50)
[2019-04-30] MEDS: SENNA/DOCUSATE NA (8.6MG/50MG) TAB PO SCH (08:39)
[2019-04-30] MEDS: metFORMIN 500 MG TAB PO SCH (08:39)
[2019-04-30] MEDS ORDERED: DIPHTH/TET/ACEL PERTUSS (ADULT) 0.5 ML VIAL IM* ONE (09:00)
--- NOTE | 2019-04-30 12:59 | DS ---
Date/Time of Note Date/Time of Note DATE: 04/30/19 TIME: 12:58 Obstetrical Discharge Record Final Diagnosis Final Diagnosis: Term delivered Section Section: Repeat Condition on Discharge Physical Assessment Voiding: Yes Bowel Movement: Yes Breast: Soft, non-tender, Filling Fundus: Firm Abdomen and Incision: Incision intact Calf Tenderness: No Patient Condition: Stable SUJIT HARLEY MD Apr 30, 2019 12:59
--- NOTE | 2019-05-01 15:42 | DELSUM ---
Delivery Summary A-C Datetime Report Generated by CPN: 05/01/2019 15:42 DELIVERY PERSONNEL Commercial Door Installer: Jade, [place] MATERNAL INFORMATION Delivery Anesthesia: Spinal Medications in Delivery: see anesthesia records Delivery QBL (ml): 600 Placenta Cultured: No Maternal Complications: Other Other Maternal Complications: TYPE II DM LABOR SUMMARY EDC: 05/04/2019 00:00 No. Babies in Womb: 1 Attempted: No Labor Anesthesia: Intrathecal LABOR INFORMATION Reason for Induction: Not Applicable Group B Beta Strep: Negative Antibiotics # of Doses: 1 Antibiotics Time of Last Dose: 04/27/2019 13:26 Steroids Given: None Reason Steroids Not Administered: Not Applicable MEMBRANES Membranes Rupture Method: Artificial Rupture of Membranes: 04/27/2019 13:46 Length of Rupture (hr): 0.02 Amniotic Fluid Color: Clear Amniotic Fluid Amount: Moderate Amniotic Fluid Odor: Normal STAGES OF LABOR Stage 3 hr: 0 Stage 3 min: 1 CSECTION DELIVERY Primary Indication: Repeat Elective CSection Urgency: Elective CSection Incidence: Repeat Labor: No Labor Elective: Elective CSection Incision: Lower Uterine Transverse Sterilization Procedure: Nico BABY A INFORMATION Infant Delivery Date/Time: 04/27/2019 13:47 Method of Delivery: Born in Route : No : N/A Forceps: N/A Vacuum Extraction: N/A Shoulder Dystocia : N/A SHOULDER DYSTOCIA BABY A Delivery Date/Time: 04/27/2019 13:47 PRESENTATION/POSITION BABY A Presentation: Cephalic Cephalic Presentation: Vertex Vertex Position: Left Occipital Anterior Breech Presentation: N/A PLACENTA INFORMATION BABY A Placenta Delivery Time : 04/27/2019 13:48 Placenta Method of Delivery: Manual Removal Placenta Status: Delivered SCORES BABY A Heart Rate 1 min: >100 bpm Resp Effort 1 min: Good Cry Reflex Irritability 1 min: Cough/Sneeze/Pulls Away Muscle Tone 1 min: Active Motion Color 1 min: Body [place], Extremit Blue Resuscitation Effort 1 min: Tactile Stimulation SCORE 1 MIN: 9 Heart Rate 5 min: >100 bpm Resp Effort 5 min: Good Cry Reflex Irritability 5 min: Cough/Sneeze/Pulls Away Muscle Tone 5 min: Active Motion Color 5 min: Body [place], Extremit Blue SCORE 5 MIN: 9 INFORMATION BABY A Gestational Age at Delivery: 39.0 Gestational Status: Full Term- 39- 40.6 Weeks Infant Outcome : Liveborn, with signs of life Infant Condition : Stable Infant Sex: Male IDENTIFICATION/MEDS BABY A ID Band Number: [id number] ID Band Location: Right Leg; Left Arm Sensor Applied: Yes Sensor Number: [id number] Sensor Location : Cord Clamp WEIGHT/LENGTH BABY A Infant Birthweight (gm): 4025 Infant Weight (lb): 8 Infant Weight (oz): 14 Infant Length (in): 21.00 Infant Length (cm): 53.34 CORD INFORMATION BABY A No. Cord Vessels: 3 Nuchal Cord : Around Neck x1, Loose Cord Blood Taken: Yes Infant Suction: Mouth; Nose ASSESSMENT BABY A Complications: None Physical Findings at Delivery: Within Normal Limits Respirations: Appears Normal Affiliate Marketing Specialist/ALS Called : No Infant Care By: /romeo Transferred To: Remains with Mother
== END 2019-04-30 15:25 | disposition home or self-care (01) | DRG 785 ==
LOC: L-D 04-27 09:57 → PP1 04-27 17:28
PROVIDERS: ADMIT Obstetrics & Gynecology; ATTEND Obstetrics & Gynecology
PROC: 0UB70ZZ Excision of Bilateral Fallopian Tubes, Open Approach (ICD-10-PCS; 2019-04-27)
PROC: 10D00Z1 Extraction of Products of Conception, Low, Open Approach (ICD-10-PCS; principal; 2019-04-27 12:30)
DX: O24.12 Pre-existing type 2 diabetes mellitus, in childbirth (principal); O34.211 Maternal care for low transverse scar from previous cesarean delivery; E11.9 Type 2 diabetes mellitus without complications; Z3A.39 39 weeks gestation of pregnancy; Z37.0 Single live birth; Z30.2 Encounter for sterilization; Z79.84 Long term (current) use of oral hypoglycemic drugs
CPT/HCPCS: 82947; 82962; 85025; 85610; 85730; 86592; 86803; 86850; 86900; 86901; 87086; 87340; 88302; 99464; J0690; J1815; J1885; J2270; J2274; J2405; J2590; J2765; J7120

== ENCOUNTER 2019-08-04 11:11 | Emergency (ER) | payer OTHER ==
[~2019-08-04] VITALS: Wt 79.0 kg
[~2019-08-04 11:11] MED LIST changes: +ACET500C5 PO; +FAMO-96 PO; -NPH,100I5 SQ
[2019-08-04 11:55] VITALS: BP 122/70; PULSE 97; RESP 20
== END 2019-08-04 15:18 | disposition home or self-care (01) ==
LOC: FTE 11:11
DX: R10.9 Unspecified abdominal pain (principal); R10.2 Pelvic and perineal pain
CPT/HCPCS: 36415; 76705; 76830; 76856; 80053; 81001; 81025; 83690; 85025; Z7502